=== PATIENT | male | born 1985 | race American Indian/Alaskan Native ===

== ENCOUNTER 2016-08-29 22:21 | Emergency (ER) | payer SELFPAY ==
[2016-08-30 03:19] VITALS: BP 139/98
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
[2016-08-30] MEDS ORDERED: PERCOCET 5/325 PO ONE (06:21)
== END 2016-08-30 06:55 | disposition home or self-care (01) ==
LOC: ED 22:21
DX: S05.12XA Contusion of eyeball and orbital tissues, left eye, initial encounter (principal); R51 Headache; Y04.8XXA Assault by other bodily force, initial encounter; Y93.89 Activity, other specified; Y92.89 Other specified places as the place of occurrence of the external cause; Y99.8 Other external cause status
CPT/HCPCS: 70450; 70486